=== PATIENT | male | born 1945 | race Asian ===

== ENCOUNTER → 2016-12-04 | Outpatient (CLI) | payer BC ==
[~2016-12-04] MED LIST: ASCA500 PO; CHOL100010 PO; LRTUNK PO; NITR-5 PO; POTA1080 PO
--- NOTE | 2016-12-04 16:17 | DIAGNOSTIC IMAGING REPORT ---
[facility] CLINICAL HISTORY: N20.0 Nephrolithiasis COMPARISON STUDY: 12/17/2015 FINDINGS: The renal shadows are largely obscured by overlying bowel gas and fecal material. No renal calculi are visualized. There is a stable right pelvic basin calcification consistent with a phlebolith. There is no pathologic bowel dilatation. IMPRESSION: 1. No renal calculi identified 2. No evidence of pathologic bowel dilatation Electronically signed by: Chito Butler M.D. 12/04/2016 4:16 PM Dictated Date/Time: 12/04/2016 4:15 PM
--- NOTE | 2017-01-02 08:55 | CODING QUERY MEDICAL NECESSITY ---
CQSUPPORTING DIAGNOSIS NEEDED A supporting diagnosis is required for the test/procedure performed on this patient in order for us to be reimbursed by the patient's insurance. Please provide a supporting diagnosis for the following test/procedure listed below next to the test name along with your signature. *If there is no additional diagnosis for this patient that would support the following test/procedure please document that below next to the test/procedure. Test(s)/Procedure(s) that require a supporting diagnosis: DOS 12/04/16 PROSTATE SPECIFIC (PSA) Provider Signature: Date: Thank you [facility] Once completed, please kindly fax back to [phone] For questions please call [phone]
== END | disposition home or self-care (01) ==
LOC: C.LAB 15:19
PROVIDERS: ATTEND Urology
DX: N20.0 Calculus of kidney (principal); N40.1 Benign prostatic hyperplasia with lower urinary tract symptoms; R33.9 Retention of urine, unspecified

== ENCOUNTER → 2017-02-13 | Outpatient (CLI) | payer BC ==
[2017-02-13 16:40] LABS: HEMATOCRIT 46.7 % (42-52); MEAN CELL VOLUME 92.3 fL (80-100); MEAN CORPUSCULAR HEMOGLOBIN 31.4 pg (25-34); MEAN PLATELET VOLUME 10.1 fL (7.4-10.4); PLATELET COUNT 199 K/uL (130-400); RED BLOOD COUNT 5.06 M/uL (4.7-6.1); WHITE BLOOD COUNT 4.79 K/uL (4.8-10.8)
[2017-02-13 16:45] LABS: URINE APPEARANCE CLEAR (CLEAR); URINE BILIRUBIN NEG (NEG); URINE COLOR YELLOW; URINE EPITHELIAL CELL AUTO 0-5 /lpf (0-5); URINE NITRITE NEG (NEG); URINE PH 7.5 (4.5-7.5); URINE SPECIFIC GRAVITY 1.012 (1.000-1.030); UROBILINOGEN NEG (NEG)
[2017-02-13 16:47] LABS: MANUAL MICROSCOPIC REQUIRED? NO; REVIEW REQ? NO
[2017-02-13 17:01] LABS: URINE PROTIEN/CREAT RATIO 0.2 (0-0.2); URINE TOTAL PROTEIN 8.4 mg/dl (0-11.9)
[2017-02-13 17:12] LABS: AST/SGOT 21 U/L (15-37); BLOOD UREA NITROGEN 12 mg/dl (7-18); BUN/CREATININE RATIO 13.5 (10-20); CALCIUM 8.7 mg/dl (8.5-10.1); CARBON DIOXIDE 31 mmol/L (21-32); CHLORIDE 106 mmol/L (98-107); CREATININE 0.85 mg/dl (0.60-1.40); GLUCOSE 88 mg/dl (70-99); MAGNESIUM 2.3 mg/dl (1.8-2.4); POTASSIUM 3.4 mmol/L (3.5-5.1); SODIUM 144 mmol/L (136-145); URIC ACID 6.5 mg/dl (2.6-7.2)
[2017-02-13 17:20] LABS: ALB/GLOB RATIO 1.5 (0.9-2); ALKALINE PHOSPHATASE 32 U/L (45-117); ALT/SGPT 39 U/L (12-78)
== END | disposition home or self-care (01) ==
LOC: C.LAB1850 15:17
PROVIDERS: ATTEND Internal Medicine Nephrology
DX: I10 Essential (primary) hypertension (principal); E55.9 Vitamin D deficiency, unspecified; N20.0 Calculus of kidney; R31.29 Other microscopic hematuria

== ENCOUNTER → 2017-04-11 | Outpatient (CLI) | payer BC | END | disposition home or self-care (01) | LOC: C.RDSM 14:45 | PROVIDERS: ATTEND Family Medicine Sports Medicine | DX: M79.602 Pain in left arm (principal) ==

== ENCOUNTER → 2017-04-19 | Outpatient (CLI) | payer BC ==
--- NOTE | 2017-04-23 20:34 | PULMONARY FUNCTION TEST ---
CLINICAL DATA: A 71-year-old male with a height of 67 inches and a weight of [address] Pedersen for evaluation of shortness of breath and wheezing. Pre-bronchodilator spirometry was performed. FINDINGS: Pre-bronchodilator spirometry is within normal limits. FVC was 99% of predicted. FEV1 was 99% of predicted. [id number] was 82% of predicted. IMPRESSION: Normal baseline spirometry. MTDD
== END | disposition home or self-care (01) ==
LOC: C.RC 14:13
PROVIDERS: ATTEND Family Medicine
DX: R06.02 Shortness of breath (principal)

== ENCOUNTER → 2017-07-25 | Outpatient (CLI) | payer BC ==
[2017-07-25 12:40] LABS: HEMATOCRIT 46.7 % (42-52); MEAN CELL VOLUME 90.3 fL (80-100); MEAN CORPUSCULAR HEMOGLOBIN 31.1 pg (25-34); MEAN CORPUSCULAR HGB CONC 34.5 g/dl (32-36); MEAN PLATELET VOLUME 10.2 fL (7.4-10.4); PLATELET COUNT 224 K/uL (130-400); RED BLOOD COUNT 5.17 M/uL (4.7-6.1); WHITE BLOOD COUNT 6.07 K/uL (4.8-10.8)
[2017-07-25 13:09] LABS: BLOOD UREA NITROGEN 11 mg/dl (7-18); CREATININE 0.75 mg/dl (0.60-1.40); GLUCOSE 99 mg/dl (70-99)
[2017-07-25 13:10] LABS: ALT/SGPT 34 U/L (12-78); AST/SGOT 18 U/L (15-37); BUN/CREATININE RATIO 14.1 (10-20); CALCIUM 8.9 mg/dl (8.5-10.1); CARBON DIOXIDE 27 mmol/L (21-32); CHLORIDE 106 mmol/L (98-107); POTASSIUM 3.3 mmol/L (3.5-5.1); SODIUM 141 mmol/L (136-145); URIC ACID 5.9 mg/dl (2.6-7.2)
[2017-07-25 13:12] LABS: ALB/GLOB RATIO 1.4 (0.9-2); ALKALINE PHOSPHATASE 36 U/L (45-117)
== END | disposition home or self-care (01) ==
LOC: C.LAB1850 10:50
PROVIDERS: ATTEND Internal Medicine Nephrology
DX: I10 Essential (primary) hypertension (principal); E55.9 Vitamin D deficiency, unspecified; N20.0 Calculus of kidney; R31.29 Other microscopic hematuria; N40.1 Benign prostatic hyperplasia with lower urinary tract symptoms

== ENCOUNTER → 2018-01-14 | Outpatient (CLI) | payer BC ==
--- NOTE | 2018-01-14 11:13 | DIAGNOSTIC IMAGING REPORT ---
CHEST 2 VIEWS ROUTINE CLINICAL HISTORY: 72 years-old Male presenting with WHEEZING. TECHNIQUE: PA and lateral views of the chest were obtained. COMPARISON: 08/10/2014. FINDINGS: Atherosclerosis of the aortic arch. Cardiac silhouette normal in size. Lungs and pleural spaces clear. Osseous structures normal. Upper abdomen normal. IMPRESSION: 1. No acute cardiopulmonary disease. Electronically signed by: Alban Brenner M.D. 01/14/2018 11:12 AM Dictated Date/Time: 01/14/2018 11:11 AM
== END | disposition home or self-care (01) ==
LOC: C.RAD1850 10:35
PROVIDERS: ATTEND Family Medicine
DX: R06.2 Wheezing (principal)

== ENCOUNTER → 2018-02-12 | Outpatient (CLI) | payer BC ==
[2018-02-12 12:27] LABS: HEMATOCRIT 46.4 % (42-52); HEMOGLOBIN 15.8 g/dL (14.0-18.0); MEAN CELL VOLUME 90.6 fL (80-100); MEAN CORPUSCULAR HEMOGLOBIN 30.9 pg (25-34); MEAN CORPUSCULAR HGB CONC 34.1 g/dl (32-36); MEAN PLATELET VOLUME 9.9 fL (7.4-10.4); PLATELET COUNT 234 K/uL (130-400); RED CELL DISTRIBUTION WIDTH CV 13.9 % (11.5-14.5); RED CELL DISTRIBUTION WIDTH SD 45.6 fL (36.4-46.3); WHITE BLOOD COUNT 5.72 K/uL (4.8-10.8)
[2018-02-12 13:13] LABS: BLOOD UREA NITROGEN 11 mg/dl (7-18); CALCIUM 9.4 mg/dl (8.5-10.1); CARBON DIOXIDE 32 mmol/L (21-32); CREATININE 0.83 mg/dl (0.60-1.40); GLUCOSE 112 mg/dl (70-99); POTASSIUM 2.9 mmol/L (3.5-5.1); SODIUM 139 mmol/L (136-145); URIC ACID 6.1 mg/dl (2.6-7.2)
[2018-02-12 13:14] LABS: PHOSPHORUS 3.1 mg/dl (2.5-4.9)
== END | disposition home or self-care (01) ==
LOC: C.LAB1850 10:42
PROVIDERS: ATTEND Internal Medicine Nephrology
DX: I10 Essential (primary) hypertension (principal); E55.9 Vitamin D deficiency, unspecified; N20.0 Calculus of kidney; Z23 Encounter for immunization